=== PATIENT | female | born 1985 | race Asian ===

== ENCOUNTER 2019-02-14 11:50 | Inpatient (IN) | payer BC ==
[2019-02-14 12:31] VITALS: BMI 21.5
[2019-02-14] MEDS ORDERED: hydrALAZINE 20 MG/ML VIAL SLOW IVP PRN ×2 (14:22→17:30)
[2019-02-14] MEDS ORDERED: Promethazine HCl 25 MG/ML VIAL IM PRN ×3 (14:24→20:35)
[2019-02-14] MEDS ORDERED: Butorphanol Tartrate 1 MG/ML VIAL SLOW IVP SCH (14:30)
[2019-02-14] MEDS ORDERED: Ibuprofen 800 MG TAB PO PRN (17:30)
[2019-02-14] MEDS ORDERED: Ondansetron PF 4 MG/2 ML Vial IVP PRN ×2 (17:30→20:35)
[2019-02-14] MEDS ORDERED: Butorphanol Tartrate 1 MG/ML VIAL SLOW IVP PRN (17:30)
[2019-02-14] MEDS ORDERED: Lidocaine 1% (PF) 30 ML VIAL SC PRN (17:30)
[2019-02-14] MEDS ORDERED: NS / Oxytocin 40 units/1000ml 1,000 ML IV PRN (17:30)
[2019-02-14] MEDS ORDERED: Lactated Ringer's 1,000 ML IV SCH (17:30)
[2019-02-14] MEDS ORDERED: HYDROcodone/Acetaminophen 5/325 mg Tablet PO PRN (17:30)
[2019-02-14 17:40] LABS: Hemoglobin 12.7 g/dL (12.0-16.0); Mean Corpuscular HGB CONC 33.8 g/dL (32.0-36.0); Mean Corpuscular Hemoglobin 32.2 pg (27.0-31.0); Mean Corpuscular Volume 95.3 fL (78.0-98.0); Mean Platelet Volume 9.1 fL (7.4-10.4); Platelet Count 197 thou/uL (130-400); RBC Distribution Width 11.3 % (11.5-14.5); Red Blood Cell (RBC) Count 3.94 mill/uL (4.20-5.40); White Blood Cell (WBC) Count 12.7 thou/uL (4.8-10.8)
[2019-02-14 18:21] LABS: Syphilis Antibody Nonreactive (Nonreactive); Syphilis Antibody Index 0.05 S/CO (<1.00 Non-Reactive)
[2019-02-14] MEDS ORDERED: Fentanyl 4 mcg/Bup 0.1% Cadd 100 ML ONE (19:14)
[2019-02-14 19:29] LABS: Hep B Surf Ag Reflx Confirmation S/CO (NonReactive)
[2019-02-14] MEDS ORDERED: Lidocaine 1.5%/Epinephrine 1:200,000 5 ML AMPUL IJ ONE (19:33)
[2019-02-14 19:38] LABS: HBSAg Index 1681.92 S/CO (0-0.99)
[2019-02-14] MEDS ORDERED: NS w/ Oxytocin 10 units 500 ML IV SCH (19:45)
[2019-02-14] MEDS: Lactated Ringer's 1,000 ML IV SCH (19:59)
[2019-02-14] MEDS ORDERED: Lactated Ringer's 500 ML IV PRN (20:35)
[2019-02-14] MEDS ORDERED: diphenhydrAMINE 50 MG/ML VIAL IVP PRN (20:35)
[2019-02-14] MEDS ORDERED: ePHEDrine/0.9% NaCl/PF SYRINGE 50 mg/10 ml SLOW IVP PRN (20:35)
[2019-02-14] MEDS ORDERED: Naloxone HCl 0.4 mg/ml Vial IVP PRN ×2 (20:35)
[2019-02-14] MEDS ORDERED: Acetaminophen 325 MG TAB PO PRN (20:35)
[2019-02-14] MEDS ORDERED: Communication Order-Pharmacy FS SCH (20:45)
[2019-02-14] MEDS ORDERED: Fentanyl 4 mcg/Bupivacaine 0.1% Cassette 100 ML EPIDURAL SCH (20:45)
[2019-02-15] MEDS ORDERED: Fentanyl 4 mcg/Bup 0.1% Cadd 100 ML ONE (04:11)
[2019-02-15] MEDS: Lactated Ringer's 1,000 ML IV SCH (05:00)
--- NOTE | 2019-02-15 06:56 | PDOC.OPDEL ---
OB Operative/Delivery Note Delivery Dr/Surgeon: José Miguel Pre-Delivery Diagnosis: active labor Procedure/Post Delivery Dx: spontaneous vaginal delivery Weeks gestation: 37 Anesthesia: epidural - Findings A Sex: male - 1 min: 8 - 5 min: 9 - Additional Findings/Plan Placenta delivered: spontaneous Repaired Obstetrical Laceration: 1st degree Estimated blood loss: qbl 208ml Post delivery plan: routine recovery
[2019-02-15] MEDS ORDERED: traMADol HCl 50 MG TAB PO PRN (06:57)
[2019-02-15] MEDS ORDERED: Milk Of Magnesia 30 ML UDCUP PO PRN (06:57)
[2019-02-15] MEDS ORDERED: Preparation H Ointment 28 GM TUBE PR PRN (06:57)
[2019-02-15] MEDS ORDERED: Lanolin Ointment 7 GM TUBE TOP PRN (06:57)
[2019-02-15] MEDS ORDERED: Misoprostol 200 MCG TAB VAG PRN (06:57)
[2019-02-15] MEDS ORDERED: Adacel (T-DAP) 0.5 ML SYRINGE IM ONE (06:57)
[2019-02-15] MEDS ORDERED: Benzocaine-Menthol 82.5 ML CAN TOP PRN (06:57)
[2019-02-15] MEDS ORDERED: Bisacodyl 10 MG SUPP PR PRN (06:57)
[2019-02-15] MEDS ORDERED: hydrALAZINE 20 MG/ML VIAL SLOW IVP PRN (06:57)
[2019-02-15] MEDS ORDERED: NS / Oxytocin 40 units/1000ml 1,000 ML IV SCH (07:00)
[2019-02-15] MEDS: Ferrous Sulfate 325 MG TAB PO SCH ×2 (11:01→15:39)
[2019-02-15] MEDS ORDERED: Bupivacaine 0.25% HCL 30 ML VIAL ONE (11:11)
[2019-02-15] MEDS: Prenatal Vitamin 1 TAB PO SCH (11:12)
[2019-02-15] MEDS: Docusate Calcium (SURFAK) 240 MG CAP PO SCH ×2 (11:13→21:11)
[2019-02-15] MEDS: Ibuprofen 800 MG TAB PO SCH ×2 (15:06→21:11)
[2019-02-16] MEDS: Ibuprofen 800 MG TAB PO SCH ×3 (06:08→21:26)
--- NOTE | 2019-02-16 06:38 | PDOC.PP ---
Post Progress Note Post Day #: 1 Subjective: Pt reports doing well. Reports lochia same as normal period. Up and ambulating well. denies any fever or chills. Denies any n/v/d/c. Report breast feeding and doing well. No acute concerns at this time. PO intake tolerated: yes Flatus: yes Ambulation: yes Vital Signs (12 hours) Temp Pulse Resp BP Pulse Ox 02/16/19 04:32 97.8 F 61 18 107/68 02/16/19 01:30 98.1 F 61 16 91/55 L 02/15/19 21:06 98.2 F 70 16 97/55 L 99 Weight Weight 53.524 kg - Physical Examination General: NAD Cardiovascular: no m/r/g, RRR Respiratory: clear to auscultation bilaterally, non-labored breathing Abdominal: + bowel sounds, lochia (reports as normal period), no distention, appropriately TTP Fundus firm & at: below umbilicus Extremities: negative homans (B) Perineum: Intact. No sign of acute bleeding, redness or drainage Neurological: no gross focal deficits Result Diagrams: 02/14/19 15:55 Additional Labs: Post Labs Blood Type A POSITIVE 02/14/19 19:08 Hep Bs Antigen Reflx Confirmation S/CO (NonReactive) H 02/14/19 15:55 (1) Term delivered Code(s): O80 - ENCOUNTER FOR FULL-TERM UNCOMPLICATED DELIVERY Status: Acute (2) Hepatitis B affecting Code(s): O98.419 - VIRAL HEPATITIS COMPLICATING , UNSP TRIMESTER; B19.10 - UNSPECIFIED VIRAL HEPATITIS B WITHOUT HEPATIC COMA Status: Acute - Assessment/Plan 33 yo delivered TAGA M via on 02/15/19 at 6:35 -Routine Post care -Pt reports minimal pain -1st degree laceration. Healing well. Hepatitis B -currently being tx at this time
[2019-02-16] MEDS: Prenatal Vitamin 1 TAB PO SCH (10:11)
[2019-02-16] MEDS: Docusate Calcium (SURFAK) 240 MG CAP PO SCH ×2 (10:11→21:27)
[2019-02-16] MEDS: Ferrous Sulfate 325 MG TAB PO SCH ×2 (11:34→18:42)
[2019-02-17] MEDS: Ibuprofen 800 MG TAB PO SCH (06:02)
--- NOTE | 2019-02-17 07:29 | PDOC.PP ---
Post Progress Note Post Day #: 2 PO intake tolerated: yes Flatus: yes Ambulation: yes Vital Signs (12 hours) Temp Pulse Resp BP 02/17/19 03:43 98.1 F 57 L 16 101/58 L Weight Weight 118 lb - Physical Examination Abdominal: + bowel sounds, lochia, no distention, appropriately TTP Result Diagrams: 02/14/19 15:55 Additional Labs: Post Labs Blood Type A POSITIVE 02/14/19 19:08 Hep Bs Antigen Reflx Confirmation S/CO (NonReactive) H 02/14/19 15:55 - Assessment/Plan Post day 2 from . Doing well. Discharge home. Follow up 6 weeks...
[2019-02-17 07:57] VITALS: BP 111/57; TEMP 98.5
[2019-02-17] MEDS: Docusate Calcium (SURFAK) 240 MG CAP PO SCH (08:49)
[2019-02-17] MEDS: Ferrous Sulfate 325 MG TAB PO SCH (08:49)
[2019-02-17] MEDS: Prenatal Vitamin 1 TAB PO SCH (08:49)
[2019-02-18 15:10] LABS: Hep B Surface AG-Rflx Sendout Confirm. indicated (Negative)
== END 2019-02-17 13:50 | disposition home or self-care (01) | DRG 806 ==
LOC: L&D/OP 11:50 → L&D 17:42 → 3SW 02-15 09:11
PROVIDERS: ADMIT Obstetrics & Gynecology; ATTEND Obstetrics & Gynecology
PROC: 10E0XZZ Delivery of Products of Conception, External Approach (ICD-10-PCS; principal; 2019-02-15)
PROC: 0HQ9XZZ Repair Perineum Skin, External Approach (ICD-10-PCS; 2019-02-15)
DX: O98.42 Viral hepatitis complicating childbirth (principal); B19.10 Unspecified viral hepatitis B without hepatic coma; Z37.0 Single live birth; O70.0 First degree perineal laceration during delivery; Z3A.37 37 weeks gestation of pregnancy
CPT/HCPCS: 36415; 51702; 85027; 86780; 86850; 86900; 86901; 87340; 99285; J0595; J2550; J2590; J3490; S0020

== ENCOUNTER 2020-04-29 08:05 | Outpatient (CLI) | payer BC ==
--- NOTE | 2020-04-29 08:44 | ULT ---
EXAM: US Hepatic Doppler PROVIDED CLINICAL HISTORY: Hepatitis B. COMPARISON: None FINDINGS: Visualized portions the IVC, abdominal aorta, pancreas, gallbladder, liver, and spleen demonstrate a normal sonographic appearance. The common duct measures 0.4 cm in diameter which is within normal limits. Hepatic Doppler evaluation with spectral analysis demonstrates normal directional flow within the por marco, splenic, and hepatic veins. Arterial waveforms are documented in the hepatic and splenic arteries. IMPRESSION: 1. Normal appearance of the liver and spleen. 2. No gallbladder calculi are seen, and the common duct is normal in caliber. 3. Hepatopedal flow is demonstrated.
== END 2020-04-29 08:06 | disposition home or self-care (01) ==
LOC: BICULT 08:05
PROVIDERS: ATTEND Physician Assistant Medical
DX: B18.1 Chronic viral hepatitis B without delta-agent (principal)
CPT/HCPCS: 76705

== ENCOUNTER 2024-06-26 12:45 | Outpatient (CLI) | payer BC | END 2024-06-26 12:46 | disposition home or self-care (01) | LOC: SCSRAD 12:45 | PROVIDERS: ATTEND Nurse Practitioner Family | DX: M25.572 Pain in left ankle and joints of left foot (principal) ==